=== PATIENT | female | born 1945 | race Caucasian/White ===

== ENCOUNTER 2023-10-11 23:47 | Emergency (ER) | payer BC ==
[~2023-10-11] VITALS: Ht 162.6 cm; Wt 103.1 kg
[2023-10-12] MEDS: THROMBIN (BOVINE) 5,000 UNITS VIAL TP ONE (00:02)
[2023-10-12] MEDS ORDERED: THROMBIN (BOVINE) 5,000 UNITS VIAL ONE (00:06)
[2023-10-12 00:12] LABS: MEAN CORPUSCULAR HEMOGLOBIN 24.7 uug (24.7-32.8); MEAN CORPUSCULAR VOLUME 77.4 fL (75.5-95.3); WHITE BLOOD COUNT (AUTO) 9.5 K/uL (3.8-11.8)
[2023-10-12 00:19] LABS: CARBON DIOXIDE 33 mmol/L (21-32); CHLORIDE 93 mmol/L (98-107); CREATININE 5.7 mg/dL (0.6-1.3); GLUCOSE 111 mg/dL (74-106); POTASSIUM 5.1 mmol/L (3.5-5.1); SODIUM SERUM 134 mmol/L (136-145); UREA NITROGEN, BLOOD 29 mg/dL (7-18)
[2023-10-12 00:22] LABS: BASOPHILS # (AUTO) 0.1 K/UL (0.0-0.2); BASOPHILS % (AUTO) 1.5 % (0.0-2.0); DIFFERENTIAL COMMENT 0; EOSINOPHILS # (AUTO) 0.2 K/uL (0.0-0.7); EOSINOPHILS % (AUTO) 1.8 % (0.0-7.0); HEMATOCRIT 31.8 % (31.2-41.9); HEMOGLOBIN 10.2 g/dL (10.9-14.3); LYMPHOCYTES % (AUTO) 21.2 % (20.5-51.5); MEAN CORPUSCULAR HGB CONC 32 g/dL (32.3-35.6); MONOCYTES # (AUTO) 1.1 K/uL (0.1-1.30); NEUTROPHILS # (AUTO) 6.2 K/uL (1.8-8.9); NEUTROPHILS % (AUTO) 64.5 % (38.5-71.5); PLATELET COUNT (AUTO) 287 K/uL (179-408); RED BLOOD CELL COUNT(AUTO) 4.11 MIL/uL (3.63-4.92); RED CELL DISTRIBUTION WIDTH 23.2 % (12.3-17.7)
[2023-10-12 00:25] LABS: ALANINE AMINOTRANSFERASE 16 U/L (14-59); ALBUMIN 2.6 g/dL (3.4-5.0); ALKALINE PHOSPHATASE 129 U/L (50-136); ASPARTATE AMINOTRANSFERASE 11 U/L (15-37); BILIRUBIN,TOTAL 0.4 mg/dL (0.2-1.0)
[2023-10-12] MEDS: MIDODRINE HCL 5 MG TABLET PO STA (00:41)
[2023-10-12] MEDS ORDERED: PROP10TA10 PO (00:50)
[2023-10-12] MEDS ORDERED: BUPR150T10 PO (00:50)
[2023-10-12] MEDS ORDERED: ADAL40PE SQ (00:50)
[2023-10-12] MEDS ORDERED: BUME1TAB8 PO (00:50)
[2023-10-12] MEDS ORDERED: ROSU20TA2 PO (00:50)
[2023-10-12] MEDS ORDERED: HYDR200T4 PO (00:50)
[2023-10-12] MEDS ORDERED: ALBU8.5H8 IH (00:50)
[2023-10-12] MEDS ORDERED: ARIP2TAB3 PO (00:50)
[2023-10-12] MEDS ORDERED: MIDO5TAB5 PO (00:50)
[2023-10-12] MEDS ORDERED: TRAZ-182 PO (00:50)
[2023-10-12] MEDS ORDERED: GABA-532 PO (00:50)
[2023-10-12] MEDS ORDERED: APIX2.5T PO (00:50)
[2023-10-12] MEDS ORDERED: AMIT50TA3 PO (00:50)
[2023-10-12] MEDS ORDERED: HYDR-501 PO (00:50)
[2023-10-12] MEDS: IV NORMAL SALINE 500 ML IV ONE (01:07)
[2023-10-12 02:18] VITALS: BP 135/118; TEMP 98.6; O2SAT 96
== END 2023-10-12 02:23 | disposition home or self-care (01) ==
LOC: ER 10-12 00:04
DX: T82.838A Hemorrhage due to vascular prosthetic devices, implants and grafts, initial encounter (principal); D64.9 Anemia, unspecified; N18.6 End stage renal disease; E88.09 Other disorders of plasma-protein metabolism, not elsewhere classified; I95.3 Hypotension of hemodialysis; Z98.890 Other specified postprocedural states; Z79.899 Other long term (current) drug therapy; Z99.2 Dependence on renal dialysis; Z88.0 Allergy status to penicillin; Y92.89 Other specified places as the place of occurrence of the external cause
CPT/HCPCS: 36415; 85025; 85730; A4606; A4663; J7040

== ENCOUNTER 2023-10-19 13:38 | Inpatient (IN) | payer BC ==
[~2023-10-19] VITALS: Ht 160 cm; Wt 93.7 kg
[~2023-10-19 13:38] MED LIST: ADAL40PE SQ; ALBU8.5H8 IH; AMIT50TA3 PO; APIX2.5T PO; ARIP2TAB3 PO; BUME1TAB8 PO; BUPR150T10 PO; GABA-532 PO; HYDR-501 PO; HYDR200T4 PO; MIDO5TAB5 PO; PROP10TA10 PO; ROSU20TA2 PO; TRAZ-182 PO
[2023-10-19 14:16] LABS: BASOPHILS % (AUTO) 0.2 % (0.0-2.0); EOSINOPHILS # (AUTO) 0.1 K/uL (0.0-0.7); HEMATOCRIT 30.6 % (31.2-41.9); HEMOGLOBIN 9.8 g/dL (10.9-14.3); LYMPHOCYTES # (AUTO) 1.7 K/uL (0.8-4.8); LYMPHOCYTES % (AUTO) 16.6 % (20.5-51.5); MEAN CORPUSCULAR HEMOGLOBIN 24.6 uug (24.7-32.8); MEAN CORPUSCULAR HGB CONC 32 g/dL (32.3-35.6); MONOCYTES # (AUTO) 0.9 K/uL (0.1-1.30); MONOCYTES % (AUTO) 8.4 % (0.0-11.0); NEUTROPHILS # (AUTO) 7.6 K/uL (1.8-8.9); NEUTROPHILS % (AUTO) 73.8 % (38.5-71.5); PLATELET COUNT (AUTO) 363 K/uL (179-408); RED BLOOD CELL COUNT(AUTO) 3.98 MIL/uL (3.63-4.92); RED CELL DISTRIBUTION WIDTH 22.5 % (12.3-17.7); WHITE BLOOD COUNT (AUTO) 10.2 K/uL (3.8-11.8)
[2023-10-19 14:22] LABS: DIFFERENTIAL COMMENT 1
[2023-10-19 14:26] LABS: CALCIUM 8.6 mg/dL (8.5-10.1); CARBON DIOXIDE 32 mmol/L (21-32); CHLORIDE 93 mmol/L (98-107); GLUCOSE 93 mg/dL (74-106); POTASSIUM 4.6 mmol/L (3.5-5.1); SODIUM SERUM 137 mmol/L (136-145); UREA NITROGEN, BLOOD 27 mg/dL (7-18)
[2023-10-19 14:38] LABS: ALANINE AMINOTRANSFERASE 17 U/L (14-59); ALBUMIN 2.8 g/dL (3.4-5.0); ALKALINE PHOSPHATASE 131 U/L (50-136); ASPARTATE AMINOTRANSFERASE 10 U/L (15-37); BILIRUBIN,TOTAL 0.5 mg/dL (0.2-1.0); NT-PRO BNP 3753 pg/mL (0-125); TOTAL PROTEIN, SERUM 8.4 g/dL (6.4-8.2)
[2023-10-19] MEDS ORDERED: CEFTRIAXONE /D5W 50ML IVPB **ER PYXIS IV ONE (14:54)
[2023-10-19] MEDS ORDERED: VANCOMYCIN IV 200 ML ONE (14:54)
[2023-10-19] MEDS: CEFTRIAXONE 1 G in IV DEXTROSE 5% 50 ML IV ONE (14:56)
[2023-10-19 15:32] LABS: BILIRUBIN,DIRECT < 0.1 mg/dL (0.0-0.2); LACTIC ACID 2.3 mmol/L (0.4-2.0)
[2023-10-19] MEDS: VANCOMYCIN IV 1,000 MG in IV DEXTROSE 5% 250 ML IV ONE (16:00)
[2023-10-19] MEDS ORDERED: DIPHENOXYLATE HCL/ATROP SULF TABLET ONE (19:47)
[2023-10-19] MEDS: DIPHENOXYLATE HCL/ATROP SULF TABLET PO ONE (20:00)
[2023-10-19 21:46] VITALS: BP 101/32; TEMP 98.2; O2SAT 99
[2023-10-19] MEDS ORDERED: REMEDY ESSENTIAL ZINC PASTE 113 GM TP PRN (22:15)
[2023-10-19] MEDS ORDERED: ONDANSETRON 4 MG/2 ML VIAL IV PRN (22:15)
[2023-10-19] MEDS: ACETAMINOPHEN 325 MG TABLET PO PRN (23:33)
[2023-10-20 01:29] VITALS: BP 126/70; TEMP 98.2; O2SAT 100
[2023-10-20 04:52] VITALS: BP 138/71; TEMP 98.6; O2SAT 99
[2023-10-20] MEDS: hydrOXYzine HCL 25 MG TABLET PO PRN (06:06)
[2023-10-20 07:17] LABS: BASOPHILS # (AUTO) 0.2 K/UL (0.0-0.2); BASOPHILS % (AUTO) 2.9 % (0.0-2.0); EOSINOPHILS # (AUTO) 0.2 K/uL (0.0-0.7); EOSINOPHILS % (AUTO) 2.6 % (0.0-7.0); HEMATOCRIT 27.2 % (31.2-41.9); HEMOGLOBIN 8.8 g/dL (10.9-14.3); LYMPHOCYTES # (AUTO) 1.4 K/uL (0.8-4.8); LYMPHOCYTES % (AUTO) 19.8 % (20.5-51.5); MEAN CORPUSCULAR HEMOGLOBIN 24.6 uug (24.7-32.8); MEAN CORPUSCULAR HGB CONC 32 g/dL (32.3-35.6); MEAN CORPUSCULAR VOLUME 76.3 fL (75.5-95.3); MONOCYTES # (AUTO) 0.7 K/uL (0.1-1.30); MONOCYTES % (AUTO) 10.1 % (0.0-11.0); NEUTROPHILS # (AUTO) 4.6 K/uL (1.8-8.9); NEUTROPHILS % (AUTO) 64.6 % (38.5-71.5); PLATELET COUNT (AUTO) 283 K/uL (179-408); RED BLOOD CELL COUNT(AUTO) 3.56 MIL/uL (3.63-4.92); RED CELL DISTRIBUTION WIDTH 22.6 % (12.3-17.7); WHITE BLOOD COUNT (AUTO) 7.1 K/uL (3.8-11.8)
[2023-10-20 07:26] LABS: DIFFERENTIAL COMMENT 1
[2023-10-20 07:27] VITALS: BP 93/64; TEMP 97.7; O2SAT 99
[2023-10-20 07:32] LABS: CALCIUM 8.2 mg/dL (8.5-10.1); CARBON DIOXIDE 30 mmol/L (21-32); CHLORIDE 95 mmol/L (98-107); CHOLESTEROL 140 mg/dL (<200); GLUCOSE 91 mg/dL (74-106); HDL CHOLESTEROL 74 mg/dL (40-60); MAGNESIUM 2.1 mg/dL (1.8-2.4); PHOSPHOROUS 7.8 mg/dL (2.5-4.9); POTASSIUM 4.4 mmol/L (3.5-5.1); SODIUM SERUM 139 mmol/L (136-145); TRIGLYCERIDES 75 MG/DL (30-150); UREA NITROGEN, BLOOD 36 mg/dL (7-18)
[2023-10-20 07:34] LABS: CREATININE 8.1 mg/dL (0.6-1.3)
[2023-10-20] MEDS: BUMETANIDE 1 MG TABLET PO SCH (08:12)
[2023-10-20] MEDS: GABAPENTIN 100 MG CAPSULE PO SCH (08:12)
[2023-10-20] MEDS: MIDODRINE HCL 5 MG TABLET PO SCH (08:13)
[2023-10-20] MEDS: APIXABAN 2.5 MG TABLET PO SCH (08:13)
[2023-10-20] MEDS: buPROPion SR 150 MG TABLET.SA PO SCH (08:13)
[2023-10-20] MEDS: HYDROXYCHLOROQUINE SULFATE 200 MG TABLET PO SCH (08:14)
[2023-10-20] MEDS: ARIPIPRAZOLE 2 MG TABLET PO SCH (08:15)
[2023-10-20 15:11] VITALS: BP 90/44; TEMP 97.6; O2SAT 99
[2023-10-20] MEDS ORDERED: VANCOMYCIN IV 500 MG in IV DEXTROSE 5% 100 ML IV PRN (16:45)
[2023-10-20] MEDS: ALBUMIN HUMAN 25% 100 ML IV PRN (17:25)
[2023-10-20] MEDS: TRAZODONE 50 MG TABLET PO SCH (18:15)
[2023-10-20] MEDS: AMITRIPTYLINE HCL 50 MG TABLET PO SCH (18:16)
[2023-10-20 19:47] VITALS: BP 96/47; TEMP 99.2; O2SAT 93
[2023-10-20] MEDS: VANCOMYCIN IV 1,000 MG in IV DEXTROSE 5% 250 ML IV ONE (20:50)
[2023-10-20] MEDS: ATORVASTATIN 40 MG TABLET PO SCH (20:50)
[2023-10-21 06:58] VITALS: BP 115/58; TEMP 97.8; O2SAT 98
[2023-10-21] MEDS: MIDODRINE HCL 5 MG TABLET PO SCH (08:26)
[2023-10-21 11:06] LABS: HEPATITIS B SURFACE AB, QUAL Non Reactive (.); HEPATITIS B SURFACE AG Negative (Negative)
[2023-10-21 11:26] VITALS: BP 95/46; TEMP 99.4; O2SAT 96
[2023-10-21 15:32] VITALS: BP 100/40; TEMP 98.1; O2SAT 96
[2023-10-21 20:01] VITALS: BP 101/48; TEMP 97.9; O2SAT 93
[2023-10-22 04:10] VITALS: BP 130/59; TEMP 97.8; O2SAT 96
[2023-10-22] MEDS ORDERED: ALBUMIN HUMAN 25% 50 ML IV PRN (10:00)
[2023-10-22 16:00] VITALS: BP 99/45; TEMP 98; O2SAT 97
[2023-10-22] MEDS: LIDOCAINE HCL 1% 20 ML VIAL IJ PRN (16:55)
[2023-10-22 19:35] VITALS: BP 92/43; TEMP 98; O2SAT 97
[2023-10-22] MEDS: ALPRAZOLAM 0.25 MG TABLET PO PRN (21:03)
[2023-10-23] MEDS: HYDROCODONE/APAP 5-325MG TABLET PO PRN (03:10)
[2023-10-23 05:30] VITALS: BP 105/51; TEMP 98.2; O2SAT 96
[2023-10-23 07:06] LABS: BASOPHILS # (AUTO) 0.1 K/UL (0.0-0.2); BASOPHILS % (AUTO) 1.7 % (0.0-2.0); EOSINOPHILS # (AUTO) 0.2 K/uL (0.0-0.7); EOSINOPHILS % (AUTO) 2.7 % (0.0-7.0); HEMATOCRIT 29.1 % (31.2-41.9); HEMOGLOBIN 9.4 g/dL (10.9-14.3); LYMPHOCYTES # (AUTO) 1.4 K/uL (0.8-4.8); LYMPHOCYTES % (AUTO) 19.5 % (20.5-51.5); MEAN CORPUSCULAR HEMOGLOBIN 24.5 uug (24.7-32.8); MEAN CORPUSCULAR HGB CONC 32 g/dL (32.3-35.6); MEAN CORPUSCULAR VOLUME 75.8 fL (75.5-95.3); MONOCYTES # (AUTO) 1.1 K/uL (0.1-1.30); MONOCYTES % (AUTO) 15.2 % (0.0-11.0); NEUTROPHILS # (AUTO) 4.3 K/uL (1.8-8.9); NEUTROPHILS % (AUTO) 60.9 % (38.5-71.5); PLATELET COUNT (AUTO) 261 K/uL (179-408); RED BLOOD CELL COUNT(AUTO) 3.84 MIL/uL (3.63-4.92); RED CELL DISTRIBUTION WIDTH 21.8 % (12.3-17.7); WHITE BLOOD COUNT (AUTO) 7.1 K/uL (3.8-11.8)
[2023-10-23 07:13] LABS: CALCIUM 8.8 mg/dL (8.5-10.1); CARBON DIOXIDE 34 mmol/L (21-32); CHLORIDE 97 mmol/L (98-107); CREATININE 7.1 mg/dL (0.6-1.3); GLUCOSE 91 mg/dL (74-106); MAGNESIUM 2.1 mg/dL (1.8-2.4); PHOSPHOROUS 6.7 mg/dL (2.5-4.9); POTASSIUM 4.1 mmol/L (3.5-5.1); SODIUM SERUM 140 mmol/L (136-145); UREA NITROGEN, BLOOD 27 mg/dL (7-18)
[2023-10-23 08:48] LABS: EOSINOPHILS % (MANUAL) 2 % (0-8); LYMPHOCYTES % (MANUAL) 24 % (20-40); MONOCYTES % (MANUAL) 16 % (2-10); NEUTROPHILS % (MANUAL) 58 % (42-75)
[2023-10-23 08:49] LABS: ANISOCYTOSIS 1+; HYPOCHROMASIA 1+; PLATELET ESTIMATE ADEQUATE
[2023-10-23] MEDS: MUPIROCIN 2% OINT 22 GM TUBE TP SCH (09:19)
[2023-10-23 12:04] VITALS: BP 102/51; TEMP 97.6; O2SAT 93
[2023-10-23] MEDS ORDERED: DOXY100C5 PO (14:26)
[2023-10-23] MEDS ORDERED: HYDR-3972 PO (14:26)
[2023-10-23 16:04] VITALS: BP 115/68; TEMP 97.2; O2SAT 94
[2023-10-23 20:20] VITALS: BP 124/53; TEMP 97.8; O2SAT 95
[2023-10-24 05:15] VITALS: BP 139/71; TEMP 97.9; O2SAT 95
[2023-10-24 12:08] VITALS: BP 107/46; TEMP 98.1; O2SAT 93
[2023-10-24 16:00] VITALS: BP 114/61; TEMP 98; O2SAT 97
[2023-10-24 20:10] VITALS: BP 120/54; TEMP 97.9; O2SAT 93
[2023-10-24] MEDS: METHOCARBAMOL 500 MG TABLET PO SCH (20:41)
[2023-10-24] MEDS: VANCOMYCIN IV 1,000 MG in IV DEXTROSE 5% 250 ML IV ONE (20:42)
[2023-10-25] MEDS: HYDROCODONE/APAP 5-325MG TABLET PO ONE (04:38)
[2023-10-25 04:41] VITALS: BP 134/56; TEMP 98; O2SAT 97
[2023-10-25 06:58] LABS: BASOPHILS # (AUTO) 0.1 K/UL (0.0-0.2); EOSINOPHILS # (AUTO) 0.2 K/uL (0.0-0.7); EOSINOPHILS % (AUTO) 3.3 % (0.0-7.0); HEMATOCRIT 27.8 % (31.2-41.9); HEMOGLOBIN 8.8 g/dL (10.9-14.3); LYMPHOCYTES # (AUTO) 1.6 K/uL (0.8-4.8); LYMPHOCYTES % (AUTO) 22.6 % (20.5-51.5); MEAN CORPUSCULAR HEMOGLOBIN 24.2 uug (24.7-32.8); MEAN CORPUSCULAR HGB CONC 32 g/dL (32.3-35.6); MEAN CORPUSCULAR VOLUME 76.6 fL (75.5-95.3); MONOCYTES # (AUTO) 0.8 K/uL (0.1-1.30); MONOCYTES % (AUTO) 11.4 % (0.0-11.0); NEUTROPHILS # (AUTO) 4.3 K/uL (1.8-8.9); NEUTROPHILS % (AUTO) 60.7 % (38.5-71.5); PLATELET COUNT (AUTO) 303 K/uL (179-408); RED BLOOD CELL COUNT(AUTO) 3.63 MIL/uL (3.63-4.92); RED CELL DISTRIBUTION WIDTH 21.4 % (12.3-17.7); WHITE BLOOD COUNT (AUTO) 7.1 K/uL (3.8-11.8)
[2023-10-25 07:18] LABS: CALCIUM 9.8 mg/dL (8.5-10.1); CARBON DIOXIDE 32 mmol/L (21-32); CHLORIDE 95 mmol/L (98-107); CREATININE 7.1 mg/dL (0.6-1.3); GLUCOSE 91 mg/dL (74-106); MAGNESIUM 2.1 mg/dL (1.8-2.4); POTASSIUM 4.4 mmol/L (3.5-5.1); SODIUM SERUM 137 mmol/L (136-145); UREA NITROGEN, BLOOD 26 mg/dL (7-18)
[2023-10-25 07:40] LABS: DIFFERENTIAL COMMENT 1
[2023-10-25 09:24] VITALS: BP 134/80
[2023-10-25] MEDS ORDERED: METH-806 PO (13:34)
== END 2023-10-25 10:45 | DRG 871 ==
LOC: ER 13:38 → TELE3 20:11 → MEDSURG3 22:09
PROVIDERS: ADMIT Nurse Practitioner Acute Care; ATTEND Nurse Practitioner Acute Care
PROC: 5A1D70Z Performance of Urinary Filtration, Intermittent, Less than 6 Hours Per Day (ICD-10-PCS; principal; 2023-10-20)
PROC: 5A1D70Z Performance of Urinary Filtration, Intermittent, Less than 6 Hours Per Day (ICD-10-PCS; 2023-10-20)
DX: A41.9 Sepsis, unspecified organism (principal); N18.6 End stage renal disease; L03.116 Cellulitis of left lower limb; D68.59 Other primary thrombophilia; L03.115 Cellulitis of right lower limb; L97.929 Non-pressure chronic ulcer of unspecified part of left lower leg with unspecified severity; E66.01 Morbid (severe) obesity due to excess calories; Z68.37 Body mass index [BMI] 37.0-37.9, adult; M06.9 Rheumatoid arthritis, unspecified; Z86.718 Personal history of other venous thrombosis and embolism; Z86.711 Personal history of pulmonary embolism; Z99.2 Dependence on renal dialysis; F41.9 Anxiety disorder, unspecified; F32.A Depression, unspecified; Z88.0 Allergy status to penicillin; Q78.9 Osteochondrodysplasia, unspecified; Z96.643 Presence of artificial hip joint, bilateral; Z79.01 Long term (current) use of anticoagulants; Z79.899 Other long term (current) drug therapy; S80.812A Abrasion, left lower leg, initial encounter; S80.811A Abrasion, right lower leg, initial encounter; W22.8XXA Striking against or struck by other objects, initial encounter; Y92.099 Unspecified place in other non-institutional residence as the place of occurrence of the external cause; E78.5 Hyperlipidemia, unspecified; G89.29 Other chronic pain; D63.1 Anemia in chronic kidney disease; G62.9 Polyneuropathy, unspecified; R60.1 Generalized edema; Z79.620 Long term (current) use of immunosuppressive biologic; Z75.1 Person awaiting admission to adequate facility elsewhere; I95.3 Hypotension of hemodialysis; Z91.81 History of falling; D50.0 Iron deficiency anemia secondary to blood loss (chronic)
CPT/HCPCS: 36415; 70030-TC; 71045; 83605; 83735; 84100; 84484; 85025; 85730; 86706; 87040; 87340; 90937; 93005; 93307; A4606; A4663; G0378; J0696; J3370; J3490; J7040; J7050; P9047

== ENCOUNTER 2023-11-17 17:09 | Emergency (ER) | payer BC ==
[~2023-11-17] VITALS: Ht 160 cm; Wt 95.3 kg
[~2023-11-17 17:09] MED LIST changes: -ADAL40PE SQ; -ALBU8.5H8 IH; +DOXY100C5 PO; +HYDR-3972 PO; +METH-806 PO; -PROP10TA10 PO
[2023-11-17 18:18] LABS: CARBON DIOXIDE 34 mmol/L (21-32); CHLORIDE 97 mmol/L (98-107); CREATININE 3.9 mg/dL (0.6-1.3); GLUCOSE 99 mg/dL (74-106); POTASSIUM 4.1 mmol/L (3.5-5.1); SODIUM SERUM 137 mmol/L (136-145); UREA NITROGEN, BLOOD 15 mg/dL (7-18)
[2023-11-17 18:20] LABS: BASOPHILS # (AUTO) 0.2 K/UL (0.0-0.2); BASOPHILS % (AUTO) 3.3 % (0.0-2.0); DIFFERENTIAL COMMENT 0; EOSINOPHILS # (AUTO) 0.2 K/uL (0.0-0.7); EOSINOPHILS % (AUTO) 3.4 % (0.0-7.0); HEMATOCRIT 25.7 % (31.2-41.9); HEMOGLOBIN 7.9 g/dL (10.9-14.3); LYMPHOCYTES # (AUTO) 1.5 K/uL (0.8-4.8); LYMPHOCYTES % (AUTO) 25.6 % (20.5-51.5); MEAN CORPUSCULAR HEMOGLOBIN 23.7 uug (24.7-32.8); MEAN CORPUSCULAR HGB CONC 31 g/dL (32.3-35.6); MEAN CORPUSCULAR VOLUME 77.3 fL (75.5-95.3); MONOCYTES # (AUTO) 0.5 K/uL (0.1-1.30); MONOCYTES % (AUTO) 8.1 % (0.0-11.0); NEUTROPHILS # (AUTO) 3.4 K/uL (1.8-8.9); NEUTROPHILS % (AUTO) 59.6 % (38.5-71.5); PLATELET COUNT (AUTO) 262 K/uL (179-408); RED BLOOD CELL COUNT(AUTO) 3.32 MIL/uL (3.63-4.92); RED CELL DISTRIBUTION WIDTH 23.9 % (12.3-17.7); WHITE BLOOD COUNT (AUTO) 5.7 K/uL (3.8-11.8)
[2023-11-17 22:44] VITALS: BP 117/77; TEMP 97.5; O2SAT 100
== END 2023-11-17 22:30 | disposition home or self-care (01) ==
LOC: ER 17:10
DX: T82.838A Hemorrhage due to vascular prosthetic devices, implants and grafts, initial encounter (principal); D64.9 Anemia, unspecified; E78.5 Hyperlipidemia, unspecified; F32.A Depression, unspecified; Z98.890 Other specified postprocedural states; Z79.899 Other long term (current) drug therapy; Z88.0 Allergy status to penicillin; Y92.89 Other specified places as the place of occurrence of the external cause
CPT/HCPCS: 36415; 84484; 85025; A4606; A4663

== ENCOUNTER 2023-11-17 23:36 | Emergency (ER) | payer BC ==
[~2023-11-17] VITALS: Ht 160 cm; Wt 95.3 kg
[2023-11-18 01:19] LABS: HEMOGLOBIN 7.5 g/dL (10.9-14.3)
[2023-11-18 10:39] VITALS: BP 118/64; TEMP 97.8; O2SAT 97
== END 2023-11-18 10:41 | disposition home or self-care (01) ==
LOC: ER 23:39
DX: T82.838A Hemorrhage due to vascular prosthetic devices, implants and grafts, initial encounter (principal); D64.9 Anemia, unspecified; E78.5 Hyperlipidemia, unspecified; N18.6 End stage renal disease; F32.A Depression, unspecified; Z98.890 Other specified postprocedural states; Z79.899 Other long term (current) drug therapy; Z88.0 Allergy status to penicillin; Y92.89 Other specified places as the place of occurrence of the external cause
CPT/HCPCS: 36415; 85018; 86850; 86900; 86901; 86920; A4606; A4663; P9016

== ENCOUNTER 2023-12-15 16:22 | Emergency (ER) | payer BC ==
[~2023-12-15] VITALS: Ht 157.5 cm; Wt 97.5 kg
[2023-12-15 19:35] LABS: BASOPHILS # (AUTO) 0.2 K/UL (0.0-0.2); BASOPHILS % (AUTO) 2.9 % (0.0-2.0); EOSINOPHILS # (AUTO) 0.2 K/uL (0.0-0.7); EOSINOPHILS % (AUTO) 2.1 % (0.0-7.0); HEMATOCRIT 24.2 % (31.2-41.9); LYMPHOCYTES # (AUTO) 1.1 K/uL (0.8-4.8); LYMPHOCYTES % (AUTO) 13.5 % (20.5-51.5); MEAN CORPUSCULAR HEMOGLOBIN 24.2 uug (24.7-32.8); MEAN CORPUSCULAR HGB CONC 31 g/dL (32.3-35.6); MEAN CORPUSCULAR VOLUME 78.8 fL (75.5-95.3); MONOCYTES # (AUTO) 0.7 K/uL (0.1-1.30); MONOCYTES % (AUTO) 8.1 % (0.0-11.0); NEUTROPHILS # (AUTO) 6.1 K/uL (1.8-8.9); NEUTROPHILS % (AUTO) 73.4 % (38.5-71.5); PLATELET COUNT (AUTO) 246 K/uL (179-408); RED BLOOD CELL COUNT(AUTO) 3.07 MIL/uL (3.63-4.92); RED CELL DISTRIBUTION WIDTH 23.1 % (12.3-17.7); WHITE BLOOD COUNT (AUTO) 8.3 K/uL (3.8-11.8)
[2023-12-15 19:39] LABS: DIFFERENTIAL COMMENT 1
[2023-12-15 19:42] LABS: HEMOGLOBIN 7.4 g/dL (10.9-14.3)
[2023-12-15 19:45] LABS: CALCIUM 9.4 mg/dL (8.5-10.1); CARBON DIOXIDE 32 mmol/L (21-32); CHLORIDE 97 mmol/L (98-107); CREATININE 3.8 mg/dL (0.6-1.3); GLUCOSE 89 mg/dL (74-106); POTASSIUM 3.4 mmol/L (3.5-5.1); SODIUM SERUM 139 mmol/L (136-145); UREA NITROGEN, BLOOD 23 mg/dL (7-18)
[2023-12-15 19:55] LABS: ALANINE AMINOTRANSFERASE 18 U/L (14-59); ALBUMIN 2.8 g/dL (3.4-5.0); ALKALINE PHOSPHATASE 97 U/L (50-136); ASPARTATE AMINOTRANSFERASE 10 U/L (15-37); BILIRUBIN,TOTAL 0.5 mg/dL (0.2-1.0); TOTAL PROTEIN, SERUM 7.2 g/dL (6.4-8.2)
[2023-12-15 20:09] LABS: C-REACTIVE PROTEIN 2.29 mg/dL (0.00-0.30)
[2023-12-15] MEDS ORDERED: CLINDAMYCIN PHOSPHATE IV 300 MG in IV DEXTROSE 5% 100 ML IV ONE (21:45)
[2023-12-15] MEDS ORDERED: CLINDAMYCIN PHOSPHATE 600 MG/4 ML VIAL IM ONE (22:30)
[2023-12-15] MEDS ORDERED: CLIN300C12 PO (22:42)
[2023-12-15] MEDS ORDERED: NEOMY/BACITRA/POLYMYXIN B OINT UD PACKET TP ONE (22:44)
[2023-12-15] MEDS ORDERED: CLINDAMYCIN HCL 300 MG CAPSULE ONE (22:44)
[2023-12-15] MEDS: NEOMY/BACITRA/POLYMYXIN B OINT UD PACKET TP ONE (22:50)
[2023-12-15] MEDS: CLINDAMYCIN HCL 150 MG CAPSULE PO ONE (22:50)
[2023-12-15 23:02] VITALS: BP 134/72; TEMP 97.8; O2SAT 96
== END 2023-12-15 23:00 | disposition home or self-care (01) ==
LOC: ER 16:23
DX: S81.802A Unspecified open wound, left lower leg, initial encounter (principal); L03.116 Cellulitis of left lower limb; D64.9 Anemia, unspecified; N18.6 End stage renal disease; R51.9 Headache, unspecified; E78.5 Hyperlipidemia, unspecified; Z99.2 Dependence on renal dialysis; Z88.0 Allergy status to penicillin; Z79.2 Long term (current) use of antibiotics; Z79.899 Other long term (current) drug therapy; X58.XXXA Exposure to other specified factors, initial encounter; Y93.89 Activity, other specified; Y92.89 Other specified places as the place of occurrence of the external cause; Y99.8 Other external cause status
CPT/HCPCS: 99284; 73700; 80053; 85025; 85730; 86140; 36415; 83605; J3490; A4606; A4663